=== PATIENT | male | born 1940 | race Caucasian/White ===

== ENCOUNTER 2019-10-27 16:03 | Inpatient (IN) | payer MEDICARE ==
[~2019-10-27] VITALS: Ht 172.7 cm; Wt 100.7 kg
[~2019-10-27 16:03] MED LIST: ACETAMINOPHEN-1 EAC1 PO; AMOXICILLIN 50500 MG PO; BACTRIM DS TAB1 EACH PO; CEPHALEXIN 500500 M3 PO; LIPITOR20 MG PO; LISINOPRIL10 MG PO; TOPROL XL100 MG PO
[2019-10-27 16:10] VITALS: BP 206/104
[2019-10-27] MEDS ORDERED: LEVO-T25 MCG PO (16:17)
[2019-10-27] MEDS ORDERED: OMEPRAZOLE 20 M20 M1 PO (16:17)
[2019-10-27 17:03] LABS: URINE BILIRUBIN NEGATIVE (Negative); URINE BLOOD NEGATIVE (Negative); URINE CLARITY CLEAR; URINE COLOR YELLOW; URINE GLUCOSE-RANDOM NEGATIVE (Negative); URINE KETONES NEGATIVE (Negative); URINE LEUKOCYTES-REFLEX NEGATIVE (Negative); URINE NITRITE-REFLEX NEGATIVE (Negative); URINE PROTEIN 2+ (Negative); URINE SPECIFIC GRAVITY 1.015 (1.005-1.030); URINE UROBILINOGEN 0.2 E.U./dl (0.2-1.0)
[2019-10-27 17:09] LABS: BACTERIA-REFLEX None Seen /HPF (None Seen); CRYSTALS None Seen /LPF (None Seen); HYALINE CASTS 0-3 Few /LPF (None Seen); SQUAMOUS NONE SEEN /LPF (0-3); URINE RBC 0-2 Rare /HPF (0-2); URINE WBC-REFLEX 0-5 Rare /HPF (0-5)
[2019-10-27 17:19] LABS: ABSOLUTE BASOPHILS 0.1 thou/uL (0.0-0.2); ABSOLUTE EOSINOPHILS 0.1 thou/uL (0.0-0.7); ABSOLUTE MONOCYTES 1.3 thou/uL (0.0-1.2); ABSOLUTE NEUTROPHILS 11.7 thou/uL (1.6-8.1); BASOPHILS 0.5 %; EOSINOPHILS 0.9 %; HEMATOCRIT 42.7 % (42.0-52.0); HEMOGLOBIN 14.8 gm/dL (14.0-18.0); LYMPHOCYTES 7.1 %; MCH 30.1 pg (26.0-34.0); MCHC 34.7 g/dL (28.0-37.0); MCV 86.8 fL (80.0-100.0); NUCLEATED RBCS 0 /100WBC; PLATELET COUNT* 237 thou/uL (150-400); POLYS 82.5 %; RBC 4.92 mil/uL (4.50-6.00); RDW-CV 15.3 % (10.5-14.5); WBC 14.2 thou/uL (4.0-11.0)
--- NOTE | 2019-10-27 17:19 | NUR ---
PT IS REFUSING ONDANSETRON 4 MG AT THIS TIME. PT STATES HE IS NOT NAUSEOUS.
[2019-10-27 17:27] LABS: CALCIUM 9.3 mg/dL (8.5-10.1); CREATININE 1.4 mg/dL (0.6-1.3); POTASSIUM 4.5 mmol/L (3.5-5.1)
[2019-10-27 17:32] LABS: ALBUMIN 4.4 g/dL (3.4-5.0); TOTAL BILIRUBIN 0.6 mg/dL (<0.1-1.0); TOTAL PROTEIN 8.9 g/dL (6.4-8.2)
[2019-10-27 20:00] VITALS: BP 155/71; BP 191/88
--- NOTE | 2019-10-28 06:36 | NUR ---
PATIENT ARRIVED ON UNIT AT APPROX 2014. MINOR COMPLAINTS OF PAIN NOTED. CONTROLLED WITH MEDICATION. 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
[2019-10-28 07:15] VITALS: BP 143/83
[2019-10-28 16:39] LABS: ABSOLUTE EOSINOPHILS 0.2 thou/uL (0.0-0.7); ABSOLUTE LYMPHOCYTES 1.3 thou/uL (0.8-5.3); ABSOLUTE MONOCYTES 0.8 thou/uL (0.0-1.2); ABSOLUTE NEUTROPHILS 5.4 thou/uL (1.6-8.1); BASOPHILS 0.5 %; EOSINOPHILS 2.4 %; HEMATOCRIT 37.3 % (42.0-52.0); MCH 30.1 pg (26.0-34.0); MCHC 34.9 g/dL (28.0-37.0); MCV 86.4 fL (80.0-100.0); MONOCYTES 9.9 %; NUCLEATED RBCS 0 /100WBC; PLATELET COUNT* 204 thou/uL (150-400); POLYS 70.2 %; RBC 4.32 mil/uL (4.50-6.00); RDW-CV 15.2 % (10.5-14.5); WBC 7.7 thou/uL (4.0-11.0)
[2019-10-28 16:43] LABS: CALCIUM 8.4 mg/dL (8.5-10.1); CREATININE 1.4 mg/dL (0.6-1.3); POTASSIUM 4.5 mmol/L (3.5-5.1)
[2019-10-28 18:14] VITALS: BP 175/72
[2019-10-28 20:09] VITALS: BP 165/65
--- NOTE | 2019-10-29 04:35 | NUR ---
ASSUMED CARE AT 1905H, ON RA AND PUT ON HIS CPAP AT BEDTIME. NO DISTRESS AND NO ABDOMINAL PAIN. CONTINUE MONITORING AND TOWARD GOALS. CALL LIGHT WITH REACH.
[2019-10-29 08:57] VITALS: BP 167/67
[2019-10-29] MEDS ORDERED: AUGMENTIN 875-1 EACH PO (11:02)
[2019-10-29] MEDS ORDERED: NORCO 5-325 TA1 EAC1 PO (11:02)
--- NOTE | 2019-10-29 11:47 | EKG ---
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 : 1940 Requested By: Kervin Wilson Order Number: [id number] MD: Kevin Faith Measurements Intervals [place] Rate: 75 P: 43 MI: 183 QRS: -25 QRSD: 113 T: 61 QT: 418 QTc: 467 Interpretive Statements Sinus rhythm poor r wave progression Borderline intraventricular conduction delay Compared to ECG 04/25/2016 19:45:19 Sinus tachycardia no longer present Electronically Signed On 10-29-2019 11:45:48 CDT by Kevin Faith [email or web address] <ELECTRONICALLY SIGNED> By: Kevin Faith MD, FAC 10/29/19 1145 1811 1811 Kevin Faith MD, [facility] /EPI
[2019-10-29 12:22] VITALS: BP 167/67
--- NOTE | 2019-10-29 15:09 | NUR ---
ASSESSMENT COMPLETED DOCUMENTED THIS MORNING, PATIENT IN NO DISTRESS AND RESTING WELL. DC ORDERS REC'D FROM DR. KWAN. PRESCRIPTIONS FOR HYDROCODONE AND AUGMENTIN CALLED INTO PATIENT'S PHARMACY. 1325 DC INSTRUCTIONS GIVEN TO PATIENT WITH UNDERSTANDING VERBALIZED AND SIGNED. 1345 PATIENT DCD VIA WC ACCOMPANIED BY AND ALL PERSONAL BELONGINGS SENT.
[2019-10-29 15:16] VITALS: BP 167/67
--- NOTE | 2019-10-30 09:20 | CON ---
[address] [address] CONSULTATION Name: CHAUANDRESSA Samantha Room: [address] IN M.R.#: [id number] Admission: 10/27/19 Attend Phys: Todd Wilkinson, Discharge: 10/29/19 Date of : 36 Report #: [id number] THIS REPORT FOR: //name// cc: Zeny Palomares Linda J. DO ~ THIS REPORT FOR: //name// CC: Dr. Marleny Foss DO DATE OF SERVICE: 10/28/2019 REFERRING PHYSICIAN: Todd Wilkinson MD REASON FOR CONSULTATION: Abdominal pain. IMPRESSION: 1. Acute left lower quadrant pain with abnormal CAT scan compatible with distal descending or proximal sigmoid diverticulitis (uncomplicated). 2. Chronic constipation, which is lifelong without any major change related to the same. 3. Chronic acid reflux, well controlled on omeprazole once daily. 4. Status post aortic valve replacement with bovine heart valve for symptomatic aortic stenosis. RECOMMENDATIONS: 1. Agree with the patient being admitted to hospital for IV fluids, IV antibiotics, etc. 2. We will begin the patient on low residue diet and have the dietitian instruct him on the same for the duration of his antibiotics. 3. We will retrieve records from [place] regarding previous colonoscopy that has been done within the last 5-6 years. 4. We will schedule the patient for an outpatient upper endoscopy to assess for any damage related to reflux and a colonoscopy to be done in 6 weeks at [facility] at which time, I will tattoo the proximal and distal extents of his diverticular disease within the left colon in case this becomes a recurrent problem. 5. I have discussed these impressive plans with the patient as well and he is agreeable to the same. HISTORY OF PRESENT ILLNESS: The patient is a very pleasant 79-year-old very spry white male who was admitted to hospital [place] [address] CONSULTATION Name: ANDRESSA RITCHIE Room: [address] IN [facility].#: [id number] Admission: 10/27/19 Attend Phys: Todd Wilkinson, Discharge: 10/29/19 Date of : 36 Report #: [id number] abdominal pain, which began acutely yesterday. He has problems with lifelong constipation, which is not new for him. He is not taking anything on a regular basis except for some stool softeners. He has had some mild pain, which he thinks got worse. It was difficult to stand or move because of the same. He presented to the Emergency Room yesterday on the with these complaints and underwent CT scan of the abdomen and pelvis which revealed some inflammatory changes noted at the level of the junction of the descending and sigmoid colon with some pericolonic stranding compatible with acute diverticulitis. There is no evidence for abscess. There is no free perforation. He is admitted to the hospital for further evaluation and treatment. He does have problem with chronic acid reflux for which he takes omeprazole on a regular basis. He denies dysphagia, odynophagia, postprandial pain. As I mentioned above, he has had problems with lifelong constipation. He states he had colonoscopy in the past, last of which was performed within the last 5 years at [facility] and he thinks that he does not recall any findings being notable. He does not have a history of any polyps. He denies any prior history of the same. This is the first episode of diverticular disease. He presents today. He is admitted to the hospital for evaluation and treatment. ALLERGIES: None. MEDICATIONS: At home include lisinopril, metoprolol, atorvastatin, levothyroxine and omeprazole. PAST MEDICAL AND SURGICAL HISTORY: Remarkable for hypertension, hyperlipidemia, hypothyroidism. He has had aortic valve replacement in the past by Dr. Mayito Selby at [facility]. He does have sleep apnea for which he uses CPAP at night. SOCIAL HISTORY: The patient does not smoke, does not drink. FAMILY HISTORY: Negative. PHYSICAL EXAMINATION: GENERAL: Pleasant 79-year-old gentleman who is awake and alert. CARDIOPULMONARY: Revealed a regular rate and rhythm. LUNGS: Clear. ABDOMEN: Soft and not tender. No rebound or guarding noted. LABORATORY DATA: From admission revealed a white count of 14.2, hemoglobin 14.8, platelet count of 237,000. His MCV is 86.8 and RDW is 15.3. Sodium 140, potassium 4.5, chloride 100, bicarbonate is 34, his BUN is 27, creatinine 1.4. His total bilirubin 0.6, alkaline phosphatase 78, AST is 24, ALT 30. His albumin is 4.4. [address] [address] CONSULTATION Name: ANDRESSA RITCHIE [facility] [place].#: [id number] Admission: 10/27/19 Attend Phys: Todd FranklinNoemy Kadenkathleenfernando, Discharge: 10/29/19 Date of : 36 Report #: [id number] scan was reviewed and revealed findings as noted above. His liver appeared to be normal as does his gallbladder. Spleen, pancreas, kidneys, adrenal glands, all appeared to be normal as well. There may be a small cyst. No other abnormalities noted. DISCUSSION: At the present time, the patient has acute uncomplicated diverticulitis. I do not expect that to be a very long. We will proceed with giving him antibiotics as he is due at this point in time and schedule him for upper and lower endoscopy done in about 6 weeks or so as an outpatient. I have discussed the plans with the patient as well and he is agreeable with the same. <ELECTRONICALLY SIGNED> By: José Nicole DO 10/30/19 0920 1639 [id number] Nicole DO /nt
== END 2019-10-29 13:45 | disposition home or self-care (01) | DRG 392 ==
LOC: M.ERS 16:03 → M.3W 18:40 → M.TBA-ER 18:40 → M.3W 19:54
PROVIDERS: Family Medicine; Internal Medicine Gastroenterology; ADMIT Family Medicine
DX: K57.32 Diverticulitis of large intestine without perforation or abscess without bleeding (principal); R65.10 Systemic inflammatory response syndrome (SIRS) of non-infectious origin without acute organ dysfunction; I10 Essential (primary) hypertension; E78.5 Hyperlipidemia, unspecified; E78.00 Pure hypercholesterolemia, unspecified; K21.9 Gastro-esophageal reflux disease without esophagitis; E03.9 Hypothyroidism, unspecified; Z99.81 Dependence on supplemental oxygen; Z95.2 Presence of prosthetic heart valve; Z79.899 Other long term (current) drug therapy

== ENCOUNTER 2020-03-20 09:29 | Inpatient (IN) | payer MEDICARE ==
[~2020-03-20] VITALS: Ht 172.7 cm; Wt 89.1 kg
[~2020-03-20 09:29] MED LIST changes: +AUGMENTIN 875-1 EACH PO; +LEVO-T25 MCG PO; +NORCO 5-325 TA1 EAC1 PO; +OMEPRAZOLE 20 M20 M1 PO
[2020-03-20 09:38] VITALS: BP 180/84
[2020-03-20 10:02] LABS: ABSOLUTE BASOPHILS 0.1 thou/uL (0.0-0.2); ABSOLUTE EOSINOPHILS 0.1 thou/uL (0.0-0.7); ABSOLUTE LYMPHOCYTES 0.9 thou/uL (0.8-5.3); ABSOLUTE MONOCYTES 0.9 thou/uL (0.0-1.2); ABSOLUTE NEUTROPHILS 6.8 thou/uL (1.6-8.1); BASOPHILS 1.1 %; EOSINOPHILS 0.7 %; HEMATOCRIT 32.7 % (42.0-52.0); HEMOGLOBIN 11.1 gm/dL (14.0-18.0); LYMPHOCYTES 10.1 %; MCH 28.3 pg (26.0-34.0); MCHC 34.1 g/dL (28.0-37.0); MCV 83.1 fL (80.0-100.0); MONOCYTES 10.6 %; MPV 6.3 fl. (7.2-11.1); NUCLEATED RBCS 0 /100WBC; PLATELET COUNT* 247 thou/uL (150-400); POLYS 77.5 %; RBC 3.93 mil/uL (4.50-6.00); RDW-CV 15.8 % (10.5-14.5); WBC 8.8 thou/uL (4.0-11.0)
[2020-03-20 10:26] LABS: CALCIUM 8.7 mg/dL (8.5-10.1); CREATININE 1.3 mg/dL (0.6-1.3); POTASSIUM 4.1 mmol/L (3.5-5.1)
[2020-03-20 10:31] LABS: ALBUMIN 3.2 g/dL (3.4-5.0); TOTAL BILIRUBIN 0.8 mg/dL (<0.1-1.0); TOTAL PROTEIN 8.1 g/dL (6.4-8.2)
[2020-03-20 10:32] LABS: URINE BILIRUBIN NEGATIVE (Negative); URINE BLOOD 2+ (Negative); URINE CLARITY CLEAR; URINE COLOR YELLOW; URINE GLUCOSE-RANDOM NEGATIVE (Negative); URINE KETONES NEGATIVE (Negative); URINE LEUKOCYTES-REFLEX NEGATIVE (Negative); URINE NITRITE-REFLEX NEGATIVE (Negative); URINE PROTEIN 2+ (Negative); URINE SPECIFIC GRAVITY 1.025 (1.005-1.030); URINE UROBILINOGEN 0.2 E.U./dl (0.2-1.0)
[2020-03-20 10:49] LABS: BACTERIA-REFLEX 1-9 Few /HPF (None Seen); CASTS None Seen /LPF (None Seen); CRYSTALS None Seen /LPF (None Seen); MUCUS 0-3 Light strn/LPF (None Seen); SQUAMOUS 0-3 Few /LPF (0-3); URINE RBC 3-10 Few /HPF (0-2); URINE WBC-REFLEX 0-5 Rare /HPF (0-5)
--- NOTE | 2020-03-20 15:45 | EKG ---
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 : 1940 Requested By: Kervin Wilson Order Number: [id number] MD: Gregg Moulton Measurements Intervals [place] Rate: 78 P: 27 CO: 176 QRS: -23 QRSD: 95 T: 12 QT: 417 QTc: 476 Interpretive Statements Sinus rhythm Ventricular premature complex Probable left atrial enlargement Left ventricular hypertrophy, by voltage Inferior infarct, old Compared to ECG 10/27/2019 18:11:29 Ventricular premature complex(es) now present Left ventricular hypertrophy now present Myocardial infarct finding now present Poor R-wave progression no longer present Electronically Signed On 03-20-2020 15:44:51 CDT by Gregg Moulton [email or web address] <ELECTRONICALLY SIGNED> By: Gregg Moulton MD, [facility] 03/20/20 1544 1002 1002 Gregg Moulton MD, [facility] /EPI
[2020-03-20 15:46] LABS: CHOLESTEROL 139 mg/dL (<200); HDL CHOLESTEROL 30 mg/dL (>40); LDL CHOLESTEROL 83 mg/dL (<100); TC:HDL 4.6 Ratio (Not establshd); TRIGLYCERIDE 131 mg/dL (<150); VLDL 26 mg/dL (<40)
[2020-03-20 15:47] LABS: SERUM ASSESSMENT Clear
[2020-03-20 16:01] LABS: HEMATOCRIT 32.4 % (42.0-52.0)
[2020-03-20 18:18] VITALS: BP 185/77
[2020-03-20 20:00] VITALS: BP 167/75
[2020-03-20 20:02] VITALS: BP 176/76
[2020-03-20] MEDS ORDERED: LORCET 5-325 M1 EACH PO (21:00)
[2020-03-21] VITALS (7 sets, daily range): BP systolic 118–162; BP diastolic 49–83
[2020-03-21 05:10] LABS: ALBUMIN 2.5 g/dL (3.4-5.0); CALCIUM 7.8 mg/dL (8.5-10.1); CREATININE 1.4 mg/dL (0.6-1.3); POTASSIUM 4.2 mmol/L (3.5-5.1); TOTAL BILIRUBIN 0.3 mg/dL (<0.1-1.0); TOTAL PROTEIN 6.6 g/dL (6.4-8.2)
[2020-03-21 12:57] LABS: HEMATOCRIT 26.4 % (42.0-52.0)
[2020-03-22] VITALS: BP 167/68
[2020-03-22 04:00] VITALS: BP 154/68
[2020-03-22 04:55] LABS: HEMATOCRIT 29.8 % (42.0-52.0); HEMOGLOBIN 10.3 gm/dL (14.0-18.0)
[2020-03-22 08:10] VITALS: BP 171/57
[2020-03-22] MEDS ORDERED: CEFUROXIME500 MG PO (11:10)
[2020-03-22] MEDS ORDERED: LORCET 5-325 M1 EACH PO (11:10)
[2020-03-22] MEDS ORDERED: VENTOLIN HFA 1818 GM INH (11:15)
[2020-03-22] MEDS ORDERED: FLEXERIL PO (11:15)
[2020-03-22] MEDS ORDERED: PERCOCET 5-3251 EACH PO (11:26)
[2020-03-22 12:03] VITALS: BP 145/60
[2020-03-22 16:07] VITALS: BP 179/67
== END 2020-03-22 16:21 | disposition home health service (06) | DRG 815 ==
LOC: M.ERS 09:29 → M.2W 13:44 → M.TBA-ER 13:44 → M.2W 19:55
PROVIDERS: Family Medicine; ADMIT Internal Medicine; ATTEND Internal Medicine
DX: S36.029A Unspecified contusion of spleen, initial encounter (principal); N39.0 Urinary tract infection, site not specified; E44.0 Moderate protein-calorie malnutrition; E78.00 Pure hypercholesterolemia, unspecified; E03.9 Hypothyroidism, unspecified; N18.3 Chronic kidney disease, stage 3 (moderate); I12.9 Hypertensive chronic kidney disease with stage 1 through stage 4 chronic kidney disease, or unspecified chronic kidney disease; M54.5 Low back pain; Z95.4 Presence of other heart-valve replacement; Z99.81 Dependence on supplemental oxygen; Z79.899 Other long term (current) drug therapy; Z87.891 Personal history of nicotine dependence; Z68.29 Body mass index [BMI] 29.0-29.9, adult; Z03.818 Encounter for observation for suspected exposure to other biological agents ruled out